=== PATIENT | male | born 1935 | race Caucasian/White ===

== ENCOUNTER → 2023-11-08 14:58 | Outpatient (CLI) | payer MEDICARE, SELFPAY ==
[2022-11-20 15:04] VITALS: BMI 22.4
--- NOTE | 2023-11-08 15:00 | DI.RAD.S_ITS ---
PROCEDURE: XR ANKLE RT MIN 3V INDICATIONS: right lateral malleolus pain, no injury TECHNIQUE: 3 views of the ankle were acquired. COMPARISON: None. FINDINGS: Bones: No fractures or dislocations. Ankle mortise appears intact. No suspicious bony lesions. Soft tissues: No radiographically evident soft tissue swelling. IMPRESSION: No acute findings Dictated by: Sulaiman Wilkinson M.D. on 11/08/2023 at 19:00 Approved by: Sulaiman Wilkinson M.D. on 11/08/2023 at 19:00
== END ==
PROVIDERS: PCP Family Medicine; Referring Provider Family Medicine; Visit Provider Family Medicine
DX: M25.571 Pain in right ankle and joints of right foot (principal)
CPT/HCPCS: 73610

== ENCOUNTER 2024-02-21 10:04 | Emergency (ER) | payer MEDICARE, SELFPAY ==
[2022-11-20 15:04] VITALS: BMI 22.4
[2024-02-21 10:13] VITALS: BP 208/119; PULSE 78; RESP 16; TEMP 36.4; O2SAT 97; BMI 22.5
--- NOTE | 2024-02-21 11:13 | ED.WOUNDLAC ---
HPI - Wound/Laceration <Yariel Rosenthal PA-C - Last Filed: 02/22/24 11:35> General Chief Complaint: Wound/Laceration Stated Complaint: finger cut across wont stop bleeding Time Seen by Provider: 02/21/24 10:50 Source: patient Mode of arrival: Family Vehicle History of Present Illness HPI narrative: 88-year-old male with past medical history hypertension, Parkinson's disease, GERD, multiple cancers, urethral carcinoma presents to the ED status post a laceration to his right middle finger. Patient states he was handling a clean knife at home, when he tried to catch it before it fell, sustaining a laceration to the tip of his right middle finger. Endorses pain at the site of the injury. Patient denies numbness, tingling, weakness. Patient states that there was significant bleeding at the time of the injury, bleeding has been controlled with a pressure bandage with Coban. Patient is not on blood thinners. Denies chest pain, shortness of breath, lightheadedness, dizziness, syncope. Tetanus status is unknown. Related Data Home Medications Medication Instructions Recorded Confirmed multivitamin,[id number] 1 tab PO DAILY 09/16/20 11/08/23 (Complete Multivitamin tablet) Previous Rx's Medication Instructions Recorded gabapentin 100 mg capsule 100 mg PO BID PRN pain #180 caps 04/15/23 DISABLED PARKING PERMIT #1 ea 08/03/23 meclizine 25 mg tablet 25 mg PO QID PRN Dizziness #120 08/03/23 tabs acetaminophen 650 mg 650 mg PO Q6H #120 tabs 11/10/23 tablet,extended release (Tylenol 8 Hour) Allergies Allergy/AdvReac Type Severity Reaction Status Date / Time fentanyl Allergy Mild hives Verified 02/21/24 11:37 Review of Systems <Yariel Rosenthal PA-C - Last Filed: 02/22/24 11:35> Constitutional Constitutional: Denies chills, Denies fatigue, Denies fever(s), Denies frequent falls, Denies lethargy and Denies weakness Eyes Eyes: Denies change in vision, Denies eye discharge, Denies irritation and Denies loss of vision ENT Ears, Nose, Mouth, and Throat: Denies change in voice, Denies dizziness, Denies neck pain, Denies sore throat and Denies throat swelling Cardiovascular Cardiovascular: Denies chest pain, Denies irregular heart rhythm, Denies lightheadedness, Denies palpitations, Denies dyspnea, Denies dyspnea on exertion and Denies orthopnea Respiratory Respiratory: Denies cough, Denies dyspnea, Denies dyspnea on exertion and Denies wheezing Gastrointestinal Gastrointestinal: Denies abdominal pain, Denies change in bowel habits, Denies diarrhea, Denies nausea and Denies vomiting Musculoskeletal Musculoskeletal: Denies neck pain and Denies numbness Integumentary/Breasts Skin/Breast: Denies pruritus, Denies erythema, Denies rash and Denies wounds Comments: Right middle finger laceration to tip of finger Neurologic Neurologic: Denies behavioral changes, Denies confusion, Denies dizziness, Denies frequent falls, Denies loss of vision, Denies numbness and Denies weakness Psychiatric Psychiatric: Denies anxiety, Denies behavioral changes, Denies confusion, Denies depression, Denies homicidal ideation and Denies suicidal ideation Endocrine Endocrine: Denies fatigue, Denies flushing and Denies palpitations Hematologic/Lymphatic Hematologic/Lymphatic: Denies easy bruising Allergic/Immunologic Allergic/Immunologic: Denies urticaria, Denies throat swelling and Denies wheezing Patient History <Yariel Rosenthal PA-C - Last Filed: 02/22/24 11:35> Medical History Ureter malignant neoplasm Lumbar disc disease Chronic back pain Cervical spine disease Hearing loss Kidney failure History of kidney cancer Bladder cancer Feeling of incomplete bladder emptying Lower urinary tract symptoms Essential hypertension DDD (degenerative disc disease) Neurogenic claudication GERD (gastroesophageal reflux disease) Atrophy of left kidney 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 Trochanteric bursitis of left hip Gross hematuria Abnormal finding on diagnostic imaging of left kidney Hydronephrosis, left Cervicothoracic disc displacement HNP (herniated nucleus pulposus), cervical Arthritis of carpometacarpal (CMC) joint of both thumbs Diverticulitis Complicated grief Driving safety issue Foraminal stenosis of lumbar region Parkinson's disease Vertigo Surgical History Hx of cystoscopy (12/25/21) History of colostomy reversal Hx of colostomy Hx of bilateral hip replacements History of hip surgery History of laminectomy Anesthesia History of appendectomy History of colon resection Family History Father No problems noted. Mother No problems noted. Social History marital status: number of children: 1 household members: none Smoking Status: Former smoker alcohol intake: current Smoking Status: Former smoker alcohol intake frequency: a few times a month Alcohol type: hard liquor Substance Use Type: does not use Exam <Yariel Rosenthal PA-C - Last Filed: 02/22/24 11:35> Narrative Exam Narrative: Const General:?cooperative, healthy appearing and comfortable [facility] Head:?normal to inspection Ears:?hearing grossly normal bilaterally Nose:?external nose normal Face and sinus:?normal facial exam and sinuses nontender Mouth:?oral mucosae normal Throat:?posterior oropharynx normal Eyes General:?appearance normal, both eyes and all related structures Neck Neck:?normal visual inspection and no lymphadenopathy noted Resp Effort & Inspection:?normal respiratory effort Auscultation:?clear to auscultation bilaterally Cardio Rate:?regular rate Rhythm:?regular rhythm Integumentary There is a small, shallow 0.5 cm laceration to the tip of the right middle finger. No deeper structures visualized on exam. Wound is not bleeding in the ED. strength and sensation is intact. There is full range of motion. Patient is neurovascularly intact. Neuro General:?patient alert, patient awake and patient oriented x3 Initial Vital Signs Initial Vital Signs: Vital Signs Temperature 97.5 F L 02/21/24 10:13 Pulse Rate 78 02/21/24 10:13 Respiratory Rate 16 02/21/24 10:13 Blood Pressure 208/119 H 02/21/24 10:13 Pulse Oximetry 97 02/21/24 10:13 Oxygen Delivery Method Room Air 02/21/24 10:13 <Emeka Angulo DO - Last Filed: 02/22/24 11:38> Initial Vital Signs Initial Vital Signs: Vital Signs Temperature 97.5 F L 02/21/24 10:13 Pulse Rate 78 02/21/24 10:13 Respiratory Rate 16 02/21/24 10:13 Blood Pressure 208/119 H 02/21/24 10:13 Pulse Oximetry 97 02/21/24 10:13 Oxygen Delivery Method Room Air 02/21/24 10:13 Course <Yariel Rosenthal PA-C - Last Filed: 02/22/24 11:35> Orders Ordered: Discontinued Medications Acetaminophen (Acetaminophen 325 Mg Tablet) 975 mg PO NOW ONE Stop: 02/21/24 11:42 Last Admin: 02/21/24 11:44 Dose: 975 mg Documented By: RB Diphtheria/Tetanus/Acell Pertussis (Tet,Diph,Pertuss(Acell),Vac/Pf 0.5 Ml Syringe) 0.5 ml IM .ONCE ONE Stop: 02/21/24 11:33 Last Admin: 02/21/24 11:44 Dose: 0.5 ml Documented By: RB Vital Signs Vital signs: Vital Signs - 8 hr 02/21/24 10:13 Temperature 97.5 F L Pulse Rate 78 Respiratory Rate 16 Blood Pressure 208/119 H Pulse Oximetry 97 Oxygen Delivery Method Room Air <Emeka Angulo DO - Last Filed: 02/22/24 11:38> Orders Ordered: Discontinued Medications Acetaminophen (Acetaminophen 325 Mg Tablet) 975 mg PO NOW ONE Stop: 02/21/24 11:42 Last Admin: 02/21/24 11:44 Dose: 975 mg Documented By: RB Diphtheria/Tetanus/Acell Pertussis (Tet,Diph,Pertuss(Acell),Vac/Pf 0.5 Ml Syringe) 0.5 ml IM .ONCE ONE Stop: 02/21/24 11:33 Last Admin: 02/21/24 11:44 Dose: 0.5 ml Documented By: RB Vital Signs Vital signs: Vital Signs - 8 hr 02/21/24 10:13 Temperature 97.5 F L Pulse Rate 78 Respiratory Rate 16 Blood Pressure 208/119 H Pulse Oximetry 97 Oxygen Delivery Method Room Air MDM - Wound/Laceration <Yariel Rosenthal PA-C - Last Filed: 02/22/24 11:35> MDM Narrative Medical decision making narrative: 88-year-old male with past medical history hypertension, Parkinson's disease, GERD, multiple cancers, urethral carcinoma presents to the ED status post a laceration to his right middle finger. Concern for laceration versus need for tetanus update versus other. Given that patient has injury is over 12 hours old, laceration repair with sutures not indicated. Will apply some Dermabond to prevent further bleeding and promote healing after good cleansing. The laceration is shallow, no indication for imaging at this time. Will update tetanus. Tylenol given for pain. Tetanus was updated. The laceration was cleaned well, it appears to be healing, not bleeding at this time. Dermabond was applied and wound bandaged. Wound care and signs of infection discussed with patient. Patient is blood pressure was elevated today in the ED, with readings of 208/119 and 199/101. Patient states that taking any med for hypertension, however does endorse that his blood pressures have been running high of late. He is aware of the issue and has been trying to get in with his PCP and has had some difficulty with securing an appointment. Contacted his PCP Dr. Ladonna Jovel's office and secured an appointment for 02/29/2024. Patient agrees to keep that appointment. ED return precautions discussed with patient. Patient verbalized understanding. Medical records reviewed: Yes Discharge Plan Departure Patient Disposition: Home Clinical Impression: Laceration Instructions: DI for Laceration Repair Activity Restrictions/Additional Instructions: You were evaluated in the ED today for a finger injury. Your finger was cleaned and a glue was applied to prevent it from continuing to bleed. The glue will fall off by itself as your finger heals. Please watch for signs of infection including worsening redness swelling pain warmth, discharge. Return to the ED if you note any signs of infection. Your tetanus was updated today and is good for the next 10 years. Your blood pressure was elevated in the ED today. We have made an appointment for you to follow-up with your PCP Dr. Mitch Jovel on 02/29/2024 at 10:00 a.m.. Please make that appointment for further evaluation of your blood pressure. Return to the ED if you have worsening symptoms, signs of infection. Prescriptions: No Action gabapentin 100 mg capsule 100 mg PO BID PRN (Reason: pain) Qty: 180 3RF (DME) DISABLED PARKING PERMIT See Rx Instructions .ROUTE .MEDSUPPLY Qty: 1 0RF Rx Instructions: VALID FOR 5 YEARS meclizine 25 mg tablet 25 mg PO QID PRN (Reason: Dizziness) Qty: 120 1RF acetaminophen [Tylenol 8 Hour] 650 mg tablet extended release 650 mg PO Q6H Qty: 120 11RF Rx Instructions: take one tablet every 6 hours as needed for pain. Complete Multivitamin Tablet 1 tab PO DAILY Referrals: Mitch Jovel, DO [Primary Care Provider] - Stand Alone Forms: Patient Portal/API ED Sign-out <Emeka Angulo DO - Last Filed: 02/22/24 11:38> Cosign ED Attending Cosignature Attestation: Dr Angulo Co-Sign Statement: I was available for consultation during this patient's emergency department visit. This chart is signed by myself for administrative purposes only. I did not have direct contact with this patient during this visit. They were seen independently by the APC.
[2024-02-21] MEDS: ACETAMINOPHEN 325 MG TABLET 975 MG PO (11:44)
[2024-02-21] MEDS: TET,DIPH,PERTUSS(ACELL),VAC/PF 0.5 ML SYRINGE IM (11:44)
[2024-02-21 12:26] VITALS: BP 199/101; PULSE 63; RESP 18; O2SAT 98
--- NOTE | 2024-02-21 12:41 | PC.NURSE ---
This RN called [facility] ? [address] [place] [address] to arrange a follow up appointment for him to be seen on 02/29/2024 10am appointment with arrival at 9:45am. Patient informed to bring photo ID, and insurance card. Patient reminded to call [facility] at P: [phone] 24 hours in advance if needing to cancel or reschedule this appointment.
[2024-02-21 12:56] VITALS: TEMP 36.7
== END 2024-02-21 12:57 | disposition home or self-care (01) ==
PROVIDERS: Emergency Provider Student in an Organized Health Care Education/Training Program; PCP Family Medicine
DX: S61.212A Laceration without foreign body of right middle finger without damage to nail, initial encounter (principal); W26.0XXA Contact with knife, initial encounter; Z23 Encounter for immunization
CPT/HCPCS: 90471; 99283; 99284; 90715